=== PATIENT | female | born 1970 | race Caucasian/White ===

== ENCOUNTER 2017-08-13 02:12 | Inpatient (IN) | payer BC ==
[2017-08-13] MEDS ORDERED: IPRATROPIUM/ALBUTEROL 0.5-2.5 MG/3 ML AMPUL NEB ONE ×2 (02:28→02:32)
[2017-08-13] MEDS ORDERED: METHYLPREDNISOLONE INJ 125 MG/2 ML SDV IV ONE (02:32)
--- NOTE | 2017-08-13 03:12 | ER Document Report ---
ED General - General Chief Complaint: Breathing Difficulty Stated Complaint: DIFFICULTY BREATHING Time Seen by Provider: 08/13/17 02:32 Notes: Patient is a 46-year-old female who is visiting from [place] who has a history of alpha-1 antitrypsin deficiency who presents with complaint of difficulty breathing. She did not bring her nebulizer with her on vacation. She does get infusions of Prolastin C once a week. Last week she got double vision since she was going on for 2 weeks to last her through the 2 weeks. Infusion was on Wednesday. No fevers. No vomiting. No diarrhea. No abdominal pain. She started feeling short of breath yesterday morning and continue to progress and therefore she is come to ER. She has never been intubated. She is actually never required supplemental oxygen. She said usually she is very well controlled. Some pain in left rib with coughing. - Related Data Allergies/Adverse Reactions: No Known Allergies Allergy (Unverified 08/13/17 02:17) Past Medical History - Social History Smoking Status: Current Some Day Smoker Frequency of alcohol use: None Drug Abuse: None Family History: Reviewed & Not Pertinent Review of Systems - Review of Systems Notes: My Normal Review Basic REVIEW OF SYSTEMS: CONSTITUTIONAL : Denies fever, chills, or sweats. Denies recent illness. EENT: Denies eye, ear, throat, or mouth pain or symptoms. Denies nasal or sinus congestion. CARDIOVASCULAR: Left-sided rib pain.. RESPIRATORY: difficulty breathing. GASTROINTESTINAL: Denies abdominal pain. Denies nausea, vomiting, or diarrhea. GENITOURINARY: Denies difficulty urinating, painful urination, burning, frequency, or blood in urine. MUSCULOSKELETAL: Denies neck or back pain or joint pain or swelling. SKIN: Denies rash or skin lesions. NEUROLOGICAL: Denies altered mental status or loss of consciousness. Denies headache. Denies weakness or paralysis or loss of use of either side. Denies problems with gait or speech. Denies sensory or motor loss. ALL OTHER SYSTEMS REVIEWED AND NEGATIVE. Physical Exam - Vital signs Vitals: Temp Pulse Resp BP Pulse Ox 97.8 F 116 H 24 H 136/85 H 89 L 08/13/17 02:20 08/13/17 02:20 08/13/17 02:20 08/13/17 02:20 08/13/17 02:20 - Notes Notes: General Appearance: Well nourished, alert, cooperative, moderate acute distress , no obvious discomfort. Vitals: reviewed, See vital signs table. Head: no swelling or tenderness to the head Eyes: PERRL, EOMI, Conjuctiva clear Mouth: No decreasd moisture Throat: No tonsillar inflammation, No airway obstruction, No lymphadenopathy Neck: Supple, no neck tenderness, No thyromegaly Lungs: Diffuse wheezing, No rales, No rhonci, No accessory muscle use, failure air exchange bilaterally. Heart: Tachycardic rate, Regular rythm, No murmur, no rub Abdomen: Normal BS, soft, No rigidity, No abdominal tenderness, No guarding, no rebound, no abdominal masses, no organomegaly Extremities: strength 5/5 in all extremities, good pulses in all extremities, no swelling or tenderness in the extremities, no edema. Skin: warm, dry, appropriate color, no rash Neuro: speech clear, oriented x 3, normal affect, responds appropriately to questions. Course - Re-evaluation Re-evalutation: 08/13/17 06:00 Patient continues to have some wheezing and tightness her lungs. She was a bit anxious with the BiPAP and therefore given 0.25 mg of Ativan to help calm her down. This did help. She does not have any concerning findings on her labs. No pneumonia on chest x-ray. Due to her history of alpha-1 antitrypsin deficiency and her continued need for oxygen and wheezing and feel that she needs to be admitted. I did discuss case with Dr. Ca, hospitalist, who agrees to evaluate the patient for admission. Dictation of this chart was performed using voice recognition software; therefore, there may be some unintended grammatical errors. - Vital Signs Vital signs: Temp Pulse Resp BP Pulse Ox 97.9 F 109 H 20 110/81 95 08/13/17 05:37 08/13/17 05:37 08/13/17 05:01 08/13/17 05:37 08/13/17 05:37 - Laboratory Result Diagrams: 08/13/17 03:00 08/13/17 03:00 Laboratory results interpreted by me: 08/13/17 08/13/17 03:00 03:00 WBC 17.7 H Absolute Neutrophils 12.8 H Potassium 3.2 L Chloride 110 H Glucose 118 H - EKG Interpretation by Me Additional EKG results interpreted by me: 08/13/17 03:55 EKG is reviewed and interpreted by me. EKG shows sinus tachycardia with rate of [address] segment elevation or depression. No ischemic T-wave inversions. UT interval, QRS duration, QTc intervals are within normal range. No old EKG available for comparison. Discharge - Discharge Clinical Impression: COPD exacerbation Condition: Stable Disposition: ADMITTED OBSERVATION Admitting Provider: Hospitalist Unit Admitted: [facility]
[2017-08-13 03:13] LABS: VENOUS BLOOD BASE EXCESS -1.6 mmol/L; VENOUS BLOOD PCO2 38.8 mmHg (35-63); VENOUS BLOOD PH 7.39 (7.30-7.42)
[2017-08-13 03:17] LABS: ABSOLUTE BASOPHILS # (AUTO) 0.1 10^3/uL (0.0-0.2); ABSOLUTE EOSINOPHILS # (AUTO) 0.3 10^3/uL (0.0-0.6); ABSOLUTE LYMPHOCYTES (AUTO) 3.3 10^3/uL (0.5-4.7); ABSOLUTE MONOCYTES (AUTO) 1.1 10^3/uL (0.1-1.4); ABSOLUTE NEUT (AUTO) 12.8 10^3/uL (1.7-8.2); BASOPHILS % (AUTO) 0.5 % (0-2); EOSINOPHILS % (AUTO) 1.8 % (0-6); HEMATOCRIT 39.1 % (36.0-47.0); LYMPHOCYTES % (AUTO) 18.9 % (13-45); MEAN CORPUSCULAR HEMOGLOBIN 31.5 pg (27.0-33.4); MEAN CORPUSCULAR HGB CONC 33.4 g/dL (32.0-36.0); MEAN CORPUSCULAR VOLUME 94 fl (80-97); MONOCYTES % (AUTO) 6.4 % (3-13); PLATELET COUNT 250 10^3/uL (150-450); RED BLOOD COUNT 4.14 10^6/uL (3.72-5.28); SEGMENTED NEUTROPHILS % (AUTO) 72.4 % (42-78); TOTAL CELLS COUNTED % (AUTO) 100 %; WHITE BLOOD COUNT 17.7 10^3/uL (4.0-10.5)
[2017-08-13] MEDS: MAGNESIUM SULFATE/D5W 1 GM/100 ML RTUPB IV SCH ×2 (03:18→04:13)
--- NOTE | 2017-08-13 03:23 | RADIOLOGY REPORT (SQ) ---
EXAM DESCRIPTION: XR CHEST 1 VIEW COMPLETED DATE/TME: 08/13/2017 02:32 CLINICAL HISTORY: dyspnea COMPARISON: None. FINDINGS: Single frontal view of the chest. Left subclavian Mediport with tip in the high right atrium. The cardiomediastinal silhouette has normal size and contour. No consolidation, pneumothorax, or pleural effusion. No displaced rib fractures identified. Hyperinflation. Mild upper lobe chronic appearing interstitial change. Upper abdominal soft tissues are unremarkable. IMPRESSION: 1. No acute pulmonary process identified. Findings suggest obstructive lung disease.
[2017-08-13 03:30] LABS: ANION GAP 11 (5-19); BLOOD UREA NITROGEN 7 mg/dL (7-20); CARBON DIOXIDE 23 mmol/L (22-30); CHLORIDE 110 mmol/L (98-107); GLUCOSE 118 mg/dL (75-110); POTASSIUM 3.2 mmol/L (3.6-5.0); SODIUM 143.5 mmol/L (137-145)
[2017-08-13 03:52] LABS: APPEARANCE,URINE CLEAR; BILIRUBIN,URINE NEGATIVE (NEGATIVE); COLOR,URINE STRAW; GLUCOSE, URINE NEGATIVE (NEGATIVE); KETONES,URINE NEGATIVE (NEGATIVE); LEUKOCYTE ESTERASE,URINE NEGATIVE (NEGATIVE); NITRITE,URINE NEGATIVE (NEGATIVE); PROTEIN,URINE NEGATIVE (NEGATIVE); URINE SPECIFIC GRAVITY 1.004; UROBILINOGEN,URINE NEGATIVE mg/dL (<2.0)
[2017-08-13] MEDS ORDERED: ONDANSETRON HCL INJ/PF 4 MG/2 ML SDV IV PRN (04:11)
[2017-08-13] MEDS ORDERED: ACETAMINOPHEN 325 MG TABLET PO PRN (04:11)
[2017-08-13] MEDS ORDERED: TIOTROPIUM BROMIDE DPI 5 CAP/KIT (18 MCG/CAP) IH ONE ×2 (04:21→06:22)
--- NOTE | 2017-08-13 04:28 | PDOC H&P ---
History of Present Illness History of Present Illness: YOANNA FELIX is a 46 year old female patient from [place] came to [place] for vacation, presented with chief complaint of shortness of breath and difficulty of breathing. Patient is a known case of alpha-1 antitrypsin deficiency and has been on Prolastin C once a week. Patient failed to bring her present treatment with her. Patient denies fever, cough, chest pain, palpitation, diaphoresis, nausea, vomiting, abdominal pain or diarrhea. No urinary complaints. At ER patient given bronchodilator and steroid but still she is wheezing and short of breath. Past Medical History Pulmonary Medical History: Reports: Chronic Obstructive Pulmonary Disease (COPD) Past Surgical History Past Surgical History: Reports: Other - Skin graft Social History Smoking Status: Current Some Day Smoker Frequency of Alcohol Use: None Hx Recreational Drug Use: No Drugs: None - Advance Directive Resuscitation Status: Full Code Family History Family History: Reviewed & Not Pertinent, Hypertension Parental Family History Reviewed: Yes Children Family History Reviewed: Yes Sibling(s) Family History Reviewed.: Yes Medication/Allergy Allergies/Adverse Reactions: No Known Allergies Allergy (Unverified 08/13/17 02:17) Review of Systems Constitutional: PRESENT: as per HPI Eyes: PRESENT: as per HPI Ears: PRESENT: as per HPI Cardiovascular: PRESENT: as per HPI Respiratory: PRESENT: dyspnea Gastrointestinal: ABSENT: abdominal pain, constipation, diarrhea, hematemesis, hematochezia, nausea, vomiting Neurological: PRESENT: as per HPI Psychiatric: PRESENT: as per HPI Physical Exam Vital Signs: Temp Pulse Resp BP Pulse Ox 97.8 F 116 H 24 H 116/78 95 08/13/17 02:20 08/13/17 02:20 08/13/17 04:01 08/13/17 04:00 08/13/17 04:01 Intake & Output 08/11/17 08/12/17 08/13/17 06:59 06:59 06:59 Weight 61.4 kg General appearance: PRESENT: mild distress Head exam: PRESENT: atraumatic, normocephalic Neck exam: ABSENT: carotid bruit, JVD, lymphadenopathy, thyromegaly Respiratory exam: PRESENT: wheezes Cardiovascular exam: PRESENT: RRR. ABSENT: diastolic murmur, rubs, systolic murmur GI/Abdominal exam: PRESENT: normal bowel sounds, soft. ABSENT: distended, guarding, mass, organolmegaly, rebound, tenderness Extremities exam: PRESENT: full ROM. ABSENT: calf tenderness, clubbing, pedal edema Neurological exam: PRESENT: alert, awake, oriented to time, oriented to situation Psychiatric exam: PRESENT: normal mood Results Laboratory Results: 08/13/17 03:00 08/13/17 03:00 08/13/17 08/13/17 08/13/17 03:00 03:00 03:00 WBC 17.7 H RBC 4.14 Hgb 13.0 Hct 39.1 MCV 94 MCH 31.5 MCHC 33.4 RDW 13.0 Plt Count 250 Seg Neutrophils % 72.4 Lymphocytes % 18.9 Monocytes % 6.4 Eosinophils % 1.8 Basophils % 0.5 Absolute Neutrophils 12.8 H Absolute Lymphocytes 3.3 Absolute Monocytes 1.1 Absolute Eosinophils 0.3 Absolute Basophils 0.1 VBG pH 7.39 VBG pCO2 38.8 VBG HCO3 23.0 VBG Base Excess -1.6 Sodium 143.5 Potassium 3.2 L Chloride 110 H Carbon Dioxide 23 Anion Gap 11 BUN 7 Creatinine 0.62 Est GFR ( Amer) > 60 Est GFR (Non-Af Amer) > 60 Glucose 118 H Calcium 9.0 Urine Color Urine Appearance Urine pH Ur Specific Campbell Urine Protein Urine Glucose (UA) Urine Ketones Urine Blood Urine Nitrite Ur Leukocyte Esterase Urine WBC (Auto) 08/13/17 03:37 WBC RBC Hgb Hct MCV MCH MCHC RDW Plt Count Seg Neutrophils % Lymphocytes % Monocytes % Eosinophils % Basophils % Absolute Neutrophils Absolute Lymphocytes Absolute Monocytes Absolute Eosinophils Absolute Basophils VBG pH VBG pCO2 VBG HCO3 VBG Base Excess Sodium Potassium Chloride Carbon Dioxide Anion Gap BUN Creatinine Est GFR ( Amer) Est GFR (Non-Af Amer) Glucose Calcium Urine Color STRAW Urine Appearance CLEAR Urine pH 5.0 Ur Specific Campbell 1.004 Urine Protein NEGATIVE Urine Glucose (UA) NEGATIVE Urine Ketones NEGATIVE Urine Blood NEGATIVE Urine Nitrite NEGATIVE Ur Leukocyte Esterase NEGATIVE Urine WBC (Auto) 0 Impressions: Chest X-Ray 08/13/17 02:32 IMPRESSION: 1. No acute pulmonary process identified. Findings suggest obstructive lung disease. Assessment & Plan - Diagnosis (1) COPD exacerbation Is this a current diagnosis for this admission?: Yes Plan: Patient has been started on supplemental oxygen, bronchodilator, Solu-Medrol. - Inpatient Certification Medical Necessity: Need Close Monitoring Due to Risk of Patient Decompensation
[2017-08-13] MEDS ORDERED: LORAZEPAM INJ 2 MG/1 ML VIAL IV ONE (04:31)
[2017-08-13] MEDS: LANSOPRAZOLE 30 MG TAB.RAP.DR PO SCH (06:11)
[2017-08-13] MEDS: METHYLPREDNISOLONE INJ 40 MG/1 ML SDV IV SCH ×3 (06:14→21:46)
--- NOTE | 2017-08-13 07:37 | EKG REPORT ---
SEVERITY:- ABNORMAL ECG - SINUS TACHYCARDIA BIATRIAL ABNORMALITIES BORDERLINE T ABNORMALITIES, ANT-LAT LEADS : Confirmed by: Prasanna Escamilla MD 13-Aug-2017 07:36:20
[2017-08-13] MEDS: IPRATROPIUM/ALBUTEROL 0.5-2.5 MG/3 ML AMPUL NEB SCH ×4 (07:56→20:47)
[2017-08-13] MEDS ORDERED: TIOTROPIUM BROMIDE DPI 5 CAP/KIT (18 MCG/CAP) IH SCH (08:00)
[2017-08-13] MEDS: ENOXAPARIN SODIUM INJ 40 MG/0.4 ML DISP.SYRIN SUBCUT SCH (11:24)
[2017-08-13] MEDS: POTASSI CL 20 MEQ/50 ML RIDER 20 MEQ/50 ML RTUPB IV SCH ×3 (11:25→16:16)
[2017-08-13] MEDS: TIOTROPIUM BROMIDE DPI 5 CAP/KIT (18 MCG/CAP) IH SCH (11:26)
[2017-08-13 15:00] LABS: ANION GAP 11 (5-19); CARBON DIOXIDE 24 mmol/L (22-30); CHLORIDE 109 mmol/L (98-107)
[2017-08-13 15:38] LABS: BLOOD UREA NITROGEN 8 mg/dL (7-20); CALCIUM 9.5 mg/dL (8.4-10.2); GLUCOSE 117 mg/dL (75-110); SODIUM 143.8 mmol/L (137-145)
[2017-08-13 15:45] LABS: POTASSIUM 5.1 mmol/L (3.6-5.0)
[2017-08-13] MEDS ORDERED: PROMETHAZINE HCL 25 MG TABLET PO PRN (20:11)
--- NOTE | 2017-08-13 20:15 | Progress Note ---
Provider Note Provider Note: This is a 46-year-old woman admitted with COPD exacerbation early this morning. Significantly better. She tells me that she has been diagnosed with alpha-1 antitrypsin deficiency. We will continue treatment with IV steroids and duo nebs. I have added her Topamax and Phenergan from her home med list to her hospital medications. Will work on steroid taper when she is more stable. Continue to monitor closely for stabilization.
[2017-08-13] MEDS: TOPIRAMATE 100 MG TABLET PO SCH (21:46)
[2017-08-14] MEDS: IPRATROPIUM/ALBUTEROL 0.5-2.5 MG/3 ML AMPUL NEB SCH ×6 (00:05→20:09)
[2017-08-14] MEDS: LANSOPRAZOLE 30 MG TAB.RAP.DR PO SCH (05:07)
[2017-08-14] MEDS: METHYLPREDNISOLONE INJ 40 MG/1 ML SDV IV SCH ×3 (05:08→21:44)
[2017-08-14 06:16] LABS: ANION GAP 9 (5-19); BLOOD UREA NITROGEN 9 mg/dL (7-20); CALCIUM 9.4 mg/dL (8.4-10.2); CARBON DIOXIDE 22 mmol/L (22-30); CHLORIDE 110 mmol/L (98-107); GLUCOSE 127 mg/dL (75-110); SODIUM 141.3 mmol/L (137-145)
[2017-08-14 06:34] LABS: POTASSIUM 4.1 mmol/L (3.6-5.0)
[2017-08-14] MEDS: DULOXETINE HCL 30 MG CAPSULE.DR PO SCH (10:36)
[2017-08-14] MEDS: ENOXAPARIN SODIUM INJ 40 MG/0.4 ML DISP.SYRIN SUBCUT SCH (10:36)
[2017-08-14] MEDS: TIOTROPIUM BROMIDE DPI 5 CAP/KIT (18 MCG/CAP) IH SCH (10:36)
[2017-08-14] MEDS: TOPIRAMATE 100 MG TABLET PO SCH ×2 (10:37→21:44)
[2017-08-14] MEDS ORDERED: DOXYCYCLINE HYCLATE 100 MG TABLET PO ONE (14:00)
--- NOTE | 2017-08-14 17:43 | PDOC PROGRESS REPORT ---
Subjective Progress Note for:: 08/14/17 Subjective:: Patient still has tight feeling in her chest. She has a little bit of labored breathing she feels but overall she is improved. Dry cough. No fevers or chills. Gabriel pain nausea or vomiting. Eating and drinking well. She is in a good mood. Reason For Visit: COPD EXACERBATION Physical Exam Vital Signs: Temp Pulse Resp BP Pulse Ox 98.3 F 112 H 16 126/81 H 97 08/14/17 15:57 08/14/17 15:57 08/14/17 15:57 08/14/17 15:57 08/14/17 15:57 Pulse Oximeter Continuous Start: 08/13/17 06: 33 Freq: RTQ4 Status: Active Document 08/14/17 15:38 [facility] (Rec[facility] 08/14/17 15[id number] Pulse Oximetry Assessment Oxygen Saturation (92-100) 96 Oxygen Flow Rate (L/min) 3 Oxygen Delivery Method Nasal Cannula Equipment Usage Equipment in Use Continuous SpO2 Machine # 6 Intake & Output 08/13/17 08/14/17 08/15/17 06:59 06:59 06:59 Intake Total 1077 200 Balance 1077 200 Weight 61.4 kg General appearance: PRESENT: no acute distress, cooperative, thin, well- developed, well-nourished Head exam: ABSENT: atraumatic, normocephalic Eye exam: ABSENT: conjunctival injection, scleral icterus Ear exam: PRESENT: normal external ear exam Mouth exam: PRESENT: moist, tongue midline Respiratory exam: PRESENT: decreased breath sounds, prolonged expiratory phas, wheezes. ABSENT: unlabored Cardiovascular exam: PRESENT: tachycardia. ABSENT: systolic murmur Pulses: PRESENT: normal radial pulses GI/Abdominal exam: PRESENT: normal bowel sounds, soft. ABSENT: distended, guarding, tenderness Extremities exam: ABSENT: pedal edema Musculoskeletal exam: PRESENT: normal inspection Neurological exam: PRESENT: alert, awake, oriented to person, oriented to place , oriented to situation, CN II-XII grossly intact Psychiatric exam: PRESENT: appropriate affect. ABSENT: anxious Skin exam: PRESENT: dry, intact, warm Results Laboratory Results: 08/14/17 05:00 08/14/17 05:00 Sodium 141.3 Potassium 4.1 D Chloride 110 H Carbon Dioxide 22 Anion Gap 9 BUN 9 Creatinine 0.60 Est GFR ( Amer) > 60 Est GFR (Non-Af Amer) > 60 Glucose 127 H Calcium 9.4 Impressions: Chest X-Ray 08/13/17 02:32 IMPRESSION: 1. No acute pulmonary process identified. Findings suggest obstructive lung disease. Assessment & Plan - Diagnosis (1) [id number] deficiency Is this a current diagnosis for this admission?: Yes Plan: Patient sees a specialist at an [facility] for her alpha-1 antitrypsin deficiency. She is on a Prolastin C injection weekly. Patient is in close contact with her alpha-1 team. Unfortunately she was visiting a friend here in [place] and developed this acute illness. She is overall improving. (2) Acute hypoxemic respiratory failure Is this a current diagnosis for this admission?: Yes Plan: Secondary to COPD and alpha-1 antitrypsin. We will continue nasal cannula oxygen while she is hypoxemic. Will hope to wean to off for discharge. (3) COPD exacerbation Is this a current diagnosis for this admission?: Yes Plan: She continues on steroids which I will taper when she is improved. We will continue doxycycline 100 mg p.o. twice daily. He is also on [id number] duo nebs with as needed Xopenex available.. - Time Time Spent with patient: 25-34 minutes Medications reviewed and adjusted accordingly: Yes - Inpatient Certification Based on my medical assessment, after consideration of the patient's comorbidities, presenting symptoms, or acuity I expect that the services needed warrant INPATIENT care.: Yes I certify that my determination is in accordance with my understanding of Medicare's requirements for reasonable and necessary INPATIENT services [42 CFR 412.3e].: Yes Medical Necessity: Need for Nebulizer Therapy and Monitoring of Response
[2017-08-14] MEDS ORDERED: INSULIN LISPRO 100 UNIT/ML 3 ML VIAL SUBCUT PRN (19:12)
[2017-08-14] MEDS ORDERED: GLUCAGON,HUMAN RECOMB 1 MG INJ IM PRN (19:12)
[2017-08-14] MEDS ORDERED: DEXTROSE 40% GEL 15 GM TUBE PO PRN ×2 (19:12)
[2017-08-14] MEDS ORDERED: DEXTROSE 50%-WATER 25 GM/50 ML DISP.SYRIN IV PRN ×2 (19:12)
[2017-08-14] MEDS: DOXYCYCLINE HYCLATE 100 MG TABLET PO SCH (21:44)
[2017-08-15] MEDS: IPRATROPIUM/ALBUTEROL 0.5-2.5 MG/3 ML AMPUL NEB SCH ×6 (00:05→20:21)
[2017-08-15] MEDS: METHYLPREDNISOLONE INJ 40 MG/1 ML SDV IV SCH (06:07)
[2017-08-15] MEDS: LANSOPRAZOLE 30 MG TAB.RAP.DR PO SCH (06:07)
[2017-08-15 06:54] LABS: HEMATOCRIT 37.3 % (36.0-47.0); HEMOGLOBIN 12.5 g/dL (12.0-15.5); MEAN CORPUSCULAR HEMOGLOBIN 31.5 pg (27.0-33.4); MEAN CORPUSCULAR HGB CONC 33.4 g/dL (32.0-36.0); MEAN CORPUSCULAR VOLUME 94 fl (80-97); PLATELET COUNT 283 10^3/uL (150-450); RED BLOOD COUNT 3.96 10^6/uL (3.72-5.28); RED CELL DISTRIBUTION WIDTH 13.2 % (11.5-14.0); WHITE BLOOD COUNT 17.9 10^3/uL (4.0-10.5)
[2017-08-15] MEDS: ENOXAPARIN SODIUM INJ 40 MG/0.4 ML DISP.SYRIN SUBCUT SCH (09:49)
[2017-08-15] MEDS: DULOXETINE HCL 30 MG CAPSULE.DR PO SCH (09:49)
[2017-08-15] MEDS: TIOTROPIUM BROMIDE DPI 5 CAP/KIT (18 MCG/CAP) IH SCH (09:49)
[2017-08-15] MEDS: TOPIRAMATE 100 MG TABLET PO SCH ×2 (09:52→21:58)
[2017-08-15] MEDS: DOXYCYCLINE HYCLATE 100 MG TABLET PO SCH ×2 (09:52→21:58)
[2017-08-15] MEDS ORDERED: CYCLOBENZAPRINE HCL 10 MG TABLET PO PRN (12:18)
[2017-08-15] MEDS: FLUCONAZOLE 100 MG TABLET PO SCH (15:00)
[2017-08-15] MEDS: PREDNISONE 20 MG TABLET PO SCH (17:27)
--- NOTE | 2017-08-15 18:25 | PDOC PROGRESS REPORT ---
Subjective Progress Note for:: 08/15/17 Subjective:: She feels better today. Her chest is not as tight and she is not wheezing as much. She is in general more comfortable. No sputum production. No fevers or chills. Able to eat without difficulty. SHe is urinating normally. Reason For Visit: COPD EXACERBATION Physical Exam Vital Signs: Temp Pulse Resp BP Pulse Ox 98.8 F 88 16 122/83 94 08/15/17 15:38 08/15/17 16:17 08/15/17 16:17 08/15/17 15:38 08/15/17 16:17 Pulse Oximeter Continuous Start: 08/13/17 06: 33 Freq: RTQ4 Status: Active Document 08/15/17 16:17 [facility] (Rec: 08/15/17 16:59 [id number] Pulse Oximetry Assessment Oxygen Saturation (92-100) 94 Oxygen Flow Rate (L/min) 2.5 Oxygen Delivery Method Nasal Cannula Equipment Usage Equipment in Use Continuous SpO2 Machine # 6 Intake & Output 08/14/17 08/15/17 08/16/17 06:59 06:59 06:59 Intake Total 1077 1164 720 Balance 1077 1164 720 Weight 61.4 kg 61.4 kg General appearance: PRESENT: no acute distress, cooperative, thin, well- developed, well-nourished Head exam: PRESENT: atraumatic, normocephalic Eye exam: ABSENT: conjunctival injection, scleral icterus Ear exam: PRESENT: normal external ear exam Mouth exam: PRESENT: moist Respiratory exam: PRESENT: decreased breath sounds, unlabored, wheezes. ABSENT : rales, retraction, rhonchi Cardiovascular exam: PRESENT: tachycardia. ABSENT: systolic murmur Pulses: PRESENT: normal radial pulses GI/Abdominal exam: PRESENT: normal bowel sounds, soft. ABSENT: distended, guarding, tenderness Extremities exam: ABSENT: pedal edema Neurological exam: PRESENT: alert, awake, oriented to person, oriented to place , oriented to situation, CN II-XII grossly intact Psychiatric exam: PRESENT: appropriate affect. ABSENT: anxious Skin exam: PRESENT: dry, intact, warm. ABSENT: erythema Results Laboratory Results: 08/15/17 06:14 08/14/17 05:00 08/15/17 06:14 WBC 17.9 H RBC 3.96 Hgb 12.5 Hct 37.3 MCV 94 MCH 31.5 MCHC 33.4 RDW 13.2 Plt Count 283 Impressions: Chest X-Ray 08/13/17 02:32 IMPRESSION: 1. No acute pulmonary process identified. Findings suggest obstructive lung disease. Assessment & Plan - Diagnosis (1) [id number]-shdaocgiepz deficiency Is this a current diagnosis for this admission?: Yes Plan: Patient is followed closely by [facility], she has a team follows her. She states that she has never been sick like this since being diagnosed with alpha-1 antitrypsin deficiency. She does not think she has any liver problems. She receives a Prolastin C injection routinely. She has a port in her left chest for this purpose. (2) Acute hypoxemic respiratory failure Is this a current diagnosis for this admission?: Yes Plan: Secondary to COPD exacerbation with underlying alpha-1 antitrypsin deficiency. Overall improving. Patient is down to 2 L of nasal cannula oxygen and we will continue to wean as she is able. We will continue to treat the COPD exacerbation as well. (3) COPD exacerbation Is this a current diagnosis for this admission?: Yes Plan: Improving. Continue doxycycline. Continue steroid taper and I have transition her to prednisone today 40 mg p.o. twice daily. - Time Time Spent with patient: 25-34 minutes Medications reviewed and adjusted accordingly: Yes Anticipated discharge: Home - Inpatient Certification Based on my medical assessment, after consideration of the patient's comorbidities, presenting symptoms, or acuity I expect that the services needed warrant INPATIENT care.: Yes I certify that my determination is in accordance with my understanding of Medicare's requirements for reasonable and necessary INPATIENT services [42 CFR 412.3e].: Yes Medical Necessity: Need Close Monitoring Due to Risk of Patient Decompensation, Risk of Complication if Not Cared For in Hospital - Plan Summary Plan Summary: Of note this patient lives out of town, a [address] away in [place] and she is thinking she will probably fly home. She is here visiting friends. I like to get her off of oxygen prior to this. She is comfortable being in the hospital as long as she needs to be in order for safe discharge and safe travel back home.
[2017-08-16] MEDS: IPRATROPIUM/ALBUTEROL 0.5-2.5 MG/3 ML AMPUL NEB SCH ×4 (00:29→11:39)
[2017-08-16] MEDS: LANSOPRAZOLE 30 MG TAB.RAP.DR PO SCH (05:16)
[2017-08-16 06:03] LABS: HEMATOCRIT 38.3 % (36.0-47.0); HEMOGLOBIN 12.7 g/dL (12.0-15.5); MEAN CORPUSCULAR HEMOGLOBIN 31.5 pg (27.0-33.4); MEAN CORPUSCULAR HGB CONC 33.1 g/dL (32.0-36.0); MEAN CORPUSCULAR VOLUME 95 fl (80-97); PLATELET COUNT 283 10^3/uL (150-450); RED BLOOD COUNT 4.04 10^6/uL (3.72-5.28); RED CELL DISTRIBUTION WIDTH 13.3 % (11.5-14.0); WHITE BLOOD COUNT 13.7 10^3/uL (4.0-10.5)
[2017-08-16 06:32] LABS: ANION GAP 10 (5-19); BLOOD UREA NITROGEN 15 mg/dL (7-20); CALCIUM 9.6 mg/dL (8.4-10.2); CARBON DIOXIDE 24 mmol/L (22-30); CHLORIDE 107 mmol/L (98-107); GLUCOSE 115 mg/dL (75-110); POTASSIUM 4.2 mmol/L (3.6-5.0); SODIUM 141.3 mmol/L (137-145)
[2017-08-16] MEDS: DULOXETINE HCL 30 MG CAPSULE.DR PO SCH (11:09)
[2017-08-16] MEDS: PREDNISONE 20 MG TABLET PO SCH (11:09)
[2017-08-16] MEDS: ENOXAPARIN SODIUM INJ 40 MG/0.4 ML DISP.SYRIN SUBCUT SCH (11:09)
[2017-08-16] MEDS: TOPIRAMATE 100 MG TABLET PO SCH (11:10)
[2017-08-16] MEDS: DOXYCYCLINE HYCLATE 100 MG TABLET PO SCH (11:10)
[2017-08-16] MEDS: TIOTROPIUM BROMIDE DPI 5 CAP/KIT (18 MCG/CAP) IH SCH (11:10)
[2017-08-16 13:53] VITALS: BP 122/92
[2017-08-16] MEDS: FLUCONAZOLE 100 MG TABLET PO SCH (15:19)
--- NOTE | 2017-08-17 18:05 | DISCHARGE SUMMARY E ---
Discharge Summary NAME: YOANNA FELIX : 1970 AGE: 46Y ADMITTED: 08/13/2017 DISCHARGED: 08/16/2017 CODE STATUS: FULL CODE. PRIMARY CARE PROVIDER: Is in [place]. DISCHARGE DIAGNOSES: Include: 1. Chronic obstructive pulmonary disease exacerbation. 2. Acute on chronic hypoxemic respiratory failure which is improved. 3. Alpha-1 antitrypsin deficiency. DISCHARGE MEDICATIONS: Include: 1. Topamax 100 mg p.o. b.i.d. 2. Rizatriptan 10 mg p.o. daily p.r.n. 3. Phenergan 25 mg p.o. t.i.d. p.r.n. 4. Prednisone 50 mg taper. 5. Cymbalta 60 mg p.o. daily. 6. Doxycycline 100 mg p.o. q. 12 hours, 10 tablets with 0 refills. 7. Prolastin-C 1 g IV every week. 8. ProAir HFA 2 puffs inhalation q. 6 hours p.r.n. 9. Albuterol nebs, 1 neb q. 6 hours p.r.n. DIET: As tolerated. ACTIVITY: As tolerated. CONDITION: Good. DIAGNOSTICS: Include hematology obtained on 08/16/2017: WBCs are 30.7, hemoglobin 2.7, hematocrit is 38.3, platelet count is 198,000. Venous blood gas obtained on 08/13/2017: PH is 7.29, pCO2 is 38.3, bicarb is 23. Chemistry obtained on 08/16/2017: Sodium is 141, potassium 4.2, chloride is 107, carbon dioxide 24, BUN 15, creatinine is 0.66, glucose 115, calcium is 9.6, magnesium is 1.7. Urinalysis obtained on 08/13/2017: Color straw, appearance clear. PH is 5.0, specific gravity is 1.004. Protein negative, glucose negative, ketones negative, occult blood negative, nitrate negative, bilirubin negative, urobilinogen is negative, leukocyte esterase is negative, WBC 0, bacteria trace. Chest x-ray obtained on 08/13/2017 reveals no acute cardiopulmonary process. PHYSICAL EXAMINATION: GENERAL: On examination, the patient is a well-developed, well-nourished 46-year-old female who is awake, alert, and oriented to person, place, time, and situation. She is verbal, conversational, does not appear to be in any acute distress. VITAL SIGNS: As follows: Temperature is 98.1, pulse 99, respirations 18, blood pressure 131/88, oxygen saturation is 94% on room air. SKIN: Warm and dry. No rash. Not diaphoretic. HEENT: Pupils equal, round, and reactive to light and accommodation. Conjunctiva is pink. There is no evidence of JVP. CARDIOVASCULAR SYSTEM: Heart is regular. There is no murmur or rub. CHEST: Clear, symmetrical, unlabored. ABDOMEN: Soft, nontender, nondistended. BACK: No CVA tenderness or sacral edema. EXTREMITIES: No clubbing, cyanosis, edema. PSYCHIATRIC: Appropriate affect, pleasant mood. HISTORY OF PRESENT ILLNESS: The patient is a 46-year-old female with a past medical history of alpha-1 antitrypsin deficiency which is followed by the [facility]. The patient presented to the Emergency Department with a chief complaint of shortness of breath. The patient was on vacation here in [place] from [place] when she presented with shortness of breath and difficulty breathing. The patient failed to bring her last treatment of antitrypsin deficiency medication with her. The patient denies fever, cough. No chest pain, palpitations, diaphoresis, nausea, vomiting. No abdominal pain or diarrhea. The patient had no urinary complaints. In the Emergency Department, the patient was given a bronchodilator, steroid but was still wheezing, short of breath and therefore, was referred to the hospitalist for admission and management. HOSPITAL COURSE: The patient was admitted to continuous telemetry unit. The patient was tapered on steroids as well as bronchodilators. In spite of this, the patient's white count trended down. The patient was started on doxycycline empirically and the patient had significant improvement in symptoms. The patient has been off oxygen for greater than 36 hours and feels ready for discharge. DISCHARGE PLANNING: The patient is advised to follow up with primary care provider upon her return to [place]. TIME SPENT: Time spent on this discharge including assessment, plan, physical examination, patient education, review of records is 25 minutes. DICTATING PHYSICIAN: JEFF BERRY [id number] PHY#: [id number] 2017 ID: [id number] JOB#: [id number] ACCT: [id number] cc:ROCÍO ALVARADO, > MTDD
== END 2017-08-16 16:28 | disposition home or self-care (01) | DRG 189 ==
LOC: ER 02:12 → EH 04:26 → OBSVTOIN 04:26 → 4S 05:30 → 2S 08-16 07:59
PROVIDERS: ADMIT Internal Medicine; ATTEND Internal Medicine
DX: J96.21 Acute and chronic respiratory failure with hypoxia (principal); J44.1 Chronic obstructive pulmonary disease with (acute) exacerbation; E88.01 Alpha-1-antitrypsin deficiency; F17.210 Nicotine dependence, cigarettes, uncomplicated
CPT/HCPCS: 36415; 71045; 80048; 81001; 82803; 82962; 83735; 85025; 85027; 93005; 93010; 94640; 94660; 94762; 96365; 96366; 96375; 99285; J1642; J1650; J1815; J2060; J2920; J2930; J3475; J3480; J3490; J7512; J7620